=== PATIENT | female | born 1965 | race African-American/Black ===

== ENCOUNTER 2018-11-28 13:49 | Emergency (ER) | payer SELFPAY ==
[~2018-11-28] VITALS: Ht 161.9 cm; Wt 100.2 kg
--- NOTE | 2018-11-28 14:12 | PHYS DOC ---
Adult General Chief Complaint Chief Complaint: LOWEREXTREMITY INJURY [facility] HPI Patient is a 53 year old female who presents with right calf pain since Monday. Patient states she was pushing a trash can up a ramp and she felt a pop in her calf and then a charley horse type pain. Patient states the pain has gotten better but still has pain a she with walking. Patient has a pain in the back of her calf does not radiate. She rates pain a 5 out of 10 and states she took pain medicine this morning she does not want any more pain medicine right now. Review of Systems Review of Systems Constitutional: Denies fever or chills [] Eyes: Denies change in visual acuity, redness, or eye pain [] HENT: Denies nasal congestion or sore throat [] Respiratory: Denies cough or shortness of breath [] Cardiovascular: No additional information not addressed in HPI [] GI: Denies abdominal pain, nausea, vomiting, bloody stools or diarrhea [] : Denies dysuria or hematuria [] Musculoskeletal: Right calf pain. Denies back pain or joint pain [] Integument: Denies rash or skin lesions [] Neurologic: Denies headache, focal weakness or sensory changes [] All other systems were reviewed and found to be within normal limits, except as documented in this note. Allergies Allergies Allergies Coded Allergies Type Severity Reaction Last Updated Verified amoxicillin Allergy Mild hives 11/28/18 Yes Physical Exam Physical Exam Constitutional: Well developed, well nourished, no acute distress, non-toxic appearance. [] HENT: Normocephalic, atraumatic, bilateral external ears normal, oropharynx moist, no oral exudates, nose normal. [] Eyes: PERRLA, EOMI, conjunctiva normal, no discharge. [] Neck: Normal range of motion, no tenderness, supple, no stridor. [] Cardiovascular:Heart rate regular rhythm, no murmur [] Lungs & Thorax: Bilateral breath sounds clear to auscultation [] Abdomen: Bowel sounds normal, soft, no tenderness, no masses, no pulsatile masses. [] Skin: Warm, dry, no erythema, no rash. [] Back: No tenderness, no CVA tenderness. [] Extremities: Right Mid calf tenderness, no cyanosis, no clubbing, ROM intact, no edema. [] Neurologic: Alert and oriented X 3, normal motor function, normal sensory function, no focal deficits noted. [] Psychologic: Affect normal, judgement normal, mood normal. [] Current Patient Data Vital Signs Vital Signs Date Time Temp Pulse Resp B/P (MAP) Pulse Ox O2 Delivery O2 Flow Rate FiO2 11/28/18 14:00 97.7 83 16 145/84 (104) 98 Room Air 97.7 EKG EKG [] Radiology/Procedures Radiology/Procedures [] Impressions: [place] [address] IMAGING REPORT Signed PATIENT: CAESAR WESTBROOK ACCOUNT: [id number] : 1965 LOCATION: ER AGE: 53 SEX: F EXAM STATUS: REG ER ORD. PHYSICIAN: RICO VEGA APRN REASON: PAIN PROCEDURE: TIBIA FIBULA RIGHT RIGHT TIBIA FIBULA AP LATERAL Clinical Indication: RT CALF PAIN SINCE MONDAY, UNABLE TO BEAR FULL WEIGHT Comparison: None. Findings: The knee and ankle joints are grossly intact. There is no acute fracture. There is no significant soft tissue swelling. No radiopaque foreign body is identified. IMPRESSION: No acute fracture. Electronically signed by: Rocael Cortez MD (11/28/2018 2:52 PM) [id number] DICTATED and SIGNED BY: ROCAEL CORTEZ MD DATE: 11/28/[address] [id number] IMAGING REPORT Signed PATIENT: CAESAR WESTBROOK ACCOUNT: [id number] : 1965 LOCATION: ER AGE: 53 SEX: F EXAM STATUS: REG ER ORD. PHYSICIAN: RICO VEGA APRN REASON: CALF PAIN RT PROCEDURE: VENOUS LOWER EXTREMITY RIGHT Right lower extremity venous Doppler ultrasound History: Pain in right calf. Comparison: None. Procedure: Color flow Doppler, Doppler spectral analysis, and 2D images are obtained with and without compression in the area of the common femoral vein, superficial femoral vein - femoral vein junction, main femoral vein (superficial femoral vein) and popliteal vein. Veins of the proximal calf are also imaged. Findings: There is normal color flow, augmentation, and compressibility of all visualized vein segments. No evidence of deep venous thrombus is present. IMPRESSION: No evidence of right lower extremity deep venous thrombosis. Electronically signed by: Rocael Cortez MD (11/28/2018 4:01 PM) [id number] DICTATED and SIGNED BY: ROCAEL CORTEZ MD DATE: 11/28/18 1600 Course & Med Decision Making Course & Med Decision Making Patient is a 53 year old female who presents with right calf pain since Monday. Patient states she was pushing a trash can up a ramp and she felt a pop in her calf and then a charley horse type pain. Patient states the pain has gotten better but still has pain a she with walking. Patient has a pain in the back of her calf does not radiate. She rates pain a 5 out of 10 and states she took pain medicine this morning she does not want any more pain medicine right now. Patient denies any numbness or tingling. There is no swelling to the leg or to the foot. Positive strong pedal pulse. There is no redness or streaking. The calf Is soft and there is no lumps or masses felt. There is no injury seemed leg or deformity. Cap refill is less than 3 seconds. Extremity is warm. Negative of Homans sign. Denies chest pain, shortness of air. X-ray shows no acute findings. Ultrasound shows no acute findings. Patient to follow up with primary care. Use ice or heat for pain and tylenol or ibuprofen. Dragon Disclaimer Dragon Disclaimer This electronic medical record was generated, in whole or in part, using a voice recognition dictation system. Departure Departure Impression: Primary Impression: Strain of calf muscle Disposition: HOME, SELF-CARE Condition: STABLE Referrals: NO PCP (PCP) Patient Instructions: Muscle Cramps, [id number], Muscle Strain Additional Instructions: FOLLOW UP WITH YOUR PRIMARY CARE PHYSICIAN. USE HEAT OR ICE FOR PAIN. ALSO TAKE IBUPROFEN OR TYLENOL. Scripts Hydrocodone/Apap 5-325 (NORCO 5-325 TABLET) 1 Each Tablet 1 TAB PO PRN Q6HRS PRN for PAIN, #6 TAB 0 Refills Prov: RICO VEGA ARMHOLE [employer]ER [employer]ITCH 11/28/18 Problem Qualifiers Primary Impression: Strain of calf muscle Encounter type: initial encounter Laterality: right Qualified Codes: S86.811A - Strain of other muscle(s) and tendon(s) at lower leg level, right leg , initial encounter RICO VEGA APRN Nov 28, 2018 14:12
--- NOTE | 2018-11-28 14:57 | RAD ---
RIGHT TIBIA FIBULA AP LATERAL Clinical Indication: RT CALF PAIN SINCE MONDAY, UNABLE TO BEAR FULL WEIGHT Comparison: None. Findings: The knee and ankle joints are grossly intact. There is no acute fracture. There is no significant soft tissue swelling. No radiopaque foreign body is identified. IMPRESSION: No acute fracture. Electronically signed by: Rocael Snider MD (11/28/2018 2:52 PM) [id number]
[2018-11-28 16:00] VITALS: BP 166/82
[2018-11-28] MEDS ORDERED: HYDR-3164 PO (16:02)
--- NOTE | 2018-11-28 16:06 | RAD ---
Right lower extremity venous Doppler ultrasound History: Pain in right calf. Comparison: None. Procedure: Color flow Doppler, Doppler spectral analysis, and 2D images are obtained with and without compression in the area of the common femoral vein, superficial femoral vein - femoral vein junction, main femoral vein (superficial femoral vein) and popliteal vein. Veins of the proximal calf are also imaged. Findings: There is normal color flow, augmentation, and compressibility of all visualized vein segments. No evidence of deep venous thrombus is present. IMPRESSION: No evidence of right lower extremity deep venous thrombosis. Electronically signed by: Rocael Snider MD (11/28/2018 4:01 PM) [id number]
== END 2018-11-28 16:11 | disposition home or self-care (01) ==
LOC: ER 13:49
DX: S86.811A Strain of other muscle(s) and tendon(s) at lower leg level, right leg, initial encounter (principal); Z88.1 Allergy status to other antibiotic agents; X50.9XXA Other and unspecified overexertion or strenuous movements or postures, initial encounter; Y93.89 Activity, other specified; Y92.89 Other specified places as the place of occurrence of the external cause; Y99.8 Other external cause status
CPT/HCPCS: 73590; 93971; 99284